=== PATIENT | female | born 1990 | race Hispanic/Latino ===

== ENCOUNTER 2018-10-24 11:26 | Outpatient (CLI) | payer BC | END 2018-10-24 11:27 | disposition home or self-care (01) | LOC: DTY/OP 11:26 | PROVIDERS: ATTEND Obstetrics & Gynecology | DX: O24.419 Gestational diabetes mellitus in pregnancy, unspecified control (principal) | CPT/HCPCS: 97802 ==

== ENCOUNTER 2020-04-15 13:37 | Outpatient (CLI) | payer BC ==
--- NOTE | 2020-04-15 14:28 | ULT ---
LIMITED LEFT BREAST ULTRASOUND: 04/15/20 HISTORY: 29-year-old female with pain in the left outer breast. FINDINGS/IMPRESSION: Sonographic evaluation of the left outer breast (12 to 6 o'clock) demonstrates no abnormality. POS: OFF
== END 2020-04-15 13:38 | disposition home or self-care (01) ==
LOC: BICULT 13:37
PROVIDERS: ATTEND Obstetrics & Gynecology
DX: N64.4 Mastodynia (principal)

== ENCOUNTER 2023-03-09 11:12 | Outpatient (CLI) | payer BC ==
[2023-03-09 12:47] LABS: #Eosinphils 0.1 10x3/uL (0.0-0.5); #Monocytes 0.7 10x3/uL (0.0-1.1); #Neutrophils 4.7 10x3/uL (1.5-8.4); %Basophils 0.5 % (0.0-2.0); %Eosinophils 0.7 % (0.0-6.0); %Lymphocytes 34.4 % (18.0-47.0); %Monocytes 8.2 % (0.0-10.0); %Neutrophils 56.1 % (40.0-75.0); Hematocrit 41.6 % (34.9-44.5); Hemoglobin 14.2 g/dL (12.0-15.5); Mean Corpuscular HGB CONC 34.1 g/dL (32.0-36.0); Mean Corpuscular Hemoglobin 29.7 pg (27.0-33.0); Mean Platelet Volume 9.1 fl (7.4-10.4); Platelet Count 311 10x3/uL (150-450); RBC Distribution Width 11.9 % (11.5-14.5); Red Blood Cell (RBC) Count 4.78 10x6/uL (3.90-5.03); White Blood Cell (WBC) Count 8.3 10x3/uL (3.5-10.5)
[2023-03-09 12:54] LABS: BHCG - Serum Negative (NEGATIVE); Pregs Control Background? CLEAR/WHITE (CLR/WHITE); Pregs Control Bar Appear? YES (CONTROL BAR)
[2023-03-09 12:58] LABS: Anion Gap 13 mmol/L (10-20); BUN (Urea Nitrogen) 10 mg/dL (7.0-18.7); Calc. Creatinine Clearance 0 mL/min (70-130); Calcium 9.1 mg/dL (7.8-10.44); Carbon Dioxide 21 mmol/L (22-29); Chloride 108 mmol/L (98-107); Estimated GFR 103; Glucose 94 mg/dL (70-105); Potassium 4.2 mmol/L (3.5-5.1); Sodium 138 mmol/L (136-145)
== END 2023-03-09 11:13 | disposition home or self-care (01) ==
LOC: LABBT 11:12
PROVIDERS: ATTEND Specialist
DX: Z01.812 Encounter for preprocedural laboratory examination (principal); K42.9 Umbilical hernia without obstruction or gangrene
CPT/HCPCS: 80048; 84703; 85025

== ENCOUNTER 2023-03-16 09:07 | Day surgery (SDC) | payer BC ==
[2023-03-09 12:30] VITALS: BMI 32.9
[2023-03-16] MEDS ORDERED: Acetaminophen 500 MG TAB ONE (09:24)
[2023-03-16] MEDS ORDERED: Sodium Chloride 0.9% 0 ML ONE (09:25)
[2023-03-16] MEDS ORDERED: CEFAZOLIN 2 GM VIAL ONE ×2 (09:25→10:46)
[2023-03-16] MEDS ORDERED: Ketorolac Tromethamine 30 MG/ML VIAL ONE (09:25)
[2023-03-16] MEDS ORDERED: Scopolamine 1.5 mg/72 hour Patch ONE (10:27)
[2023-03-16] MEDS ORDERED: Midazolam HCl 2 mg/2 ml Vial ONE (10:27)
[2023-03-16] MEDS ORDERED: EPINEPHrine 1 MG/ML AMP ONE (10:32)
[2023-03-16] MEDS ORDERED: Bupivacaine 0.25% HCL 30 ML VIAL ONE (10:32)
[2023-03-16] MEDS ORDERED: fentaNYL PF 100 MCG/2 ML SYRINGE ONE (10:36)
[2023-03-16] MEDS ORDERED: Sodium Chloride 0.9% 100 ML ONE (10:46)
[2023-03-16] MEDS ORDERED: Dexamethasone 20 MG/5 ML VIAL ONE (10:59)
[2023-03-16] MEDS ORDERED: Rocuronium Bromide 10 MG/ML (10ML VIAL) ONE (10:59)
[2023-03-16] MEDS ORDERED: Lidocaine 1% PF 5 ML VIAL ONE (10:59)
[2023-03-16] MEDS ORDERED: Ondansetron PF 4 MG/2 ML Vial ONE (10:59)
[2023-03-16] MEDS ORDERED: Glycopyrrolate 0.2 MG/ML 5 ML SYRINGE ONE (10:59)
[2023-03-16] MEDS ORDERED: PROPOFOL 200 MG/20 ML VIAL ONE (10:59)
[2023-03-16] MEDS ORDERED: NEOSTIGMINE 3 MG/3 ML SYR 3 MG/3 ML SYRINGE ONE (10:59)
[2023-03-16] MEDS ORDERED: fentaNYL 50 mcg/mL 1 mL Vial ONE ×3 (12:37→13:33)
[2023-03-16] MEDS ORDERED: Ondansetron ODT 4 MG TAB ONE (16:07)
[2023-03-16] MEDS ORDERED: HYDROcodone/Acetaminophen 5/325 mg Tablet ONE (16:35)
== END 2023-03-16 16:57 | disposition home or self-care (01) ==
LOC: SDC 09:07
PROVIDERS: ATTEND Specialist
PROC: 0WUF0JZ Supplement Abdominal Wall with Synthetic Substitute, Open Approach (ICD-10-PCS; principal; 2023-03-16)
DX: K42.9 Umbilical hernia without obstruction or gangrene (principal); Z88.1 Allergy status to other antibiotic agents
CPT/HCPCS: A4314; C1781; J0171; J1100; J1885; J2250; J2405; J2704; J3010; J3490; Q0162; S0020